=== PATIENT | female | born 1975 | race Caucasian/White ===

== ENCOUNTER 2016-10-06 14:15 | Emergency (ER) | payer MEDICAID ==
[~2016-10-06] VITALS: Ht 170.2 cm; Wt 100.0 kg
[~2016-10-06 14:15] MED LIST: BUPR150CR PO; EFFE150C PO; IBUP200C PO; MULTTAB48 PO
[2016-10-06 14:17] VITALS: BP 126/85; PULSE 78; RESP 14; TEMP 98.1; O2SAT 97
== END 2016-10-06 16:00 | disposition left against medical advice (07) ==
LOC: NED 14:15
DX: F99 Mental disorder, not otherwise specified (principal)
CPT/HCPCS: 99281

== ENCOUNTER 2016-10-07 14:30 | Inpatient (IN) | payer MEDICAID, OTHER ==
[~2016-10-07] VITALS: Ht 170.2 cm; Wt 97.8 kg
[2016-10-07 17:35] VITALS: BP 135/73; PULSE 66; RESP 16; TEMP 98.6; O2SAT 96
[2016-10-07] MEDS ORDERED: LORazepam 1 MG TAB PO PRN (17:45)
[2016-10-07] MEDS ORDERED: ACETAMINOPHEN 325 MG TAB PO PRN (17:45)
[2016-10-07] MEDS ORDERED: MAGNESIUM HYDROXIDE SUSP 30 ML CUP PO PRN (17:45)
[2016-10-07] MEDS ORDERED: ALUMINUM/MAGNESIUM/SIMETH 30 ML CUP PO PRN (17:45)
[2016-10-07] MEDS ORDERED: LORazepam 2 MG/ML VIAL IM PRN ×5 (17:45→18:30)
[2016-10-07] MEDS ORDERED: hydrOXYzine HCL 50 MG TAB PO PRN (18:30)
[2016-10-07] MEDS ORDERED: FLUMAZENIL 1 MG/10 ML VIAL IV PUSH PRN (18:30)
[2016-10-07] MEDS ORDERED: LORazepam 2 MG TAB PO PRN (18:30)
[2016-10-08 06:00] VITALS: BP 120/67; PULSE 72; RESP 16; TEMP 98.2; O2SAT 98
[2016-10-08 08:26] LABS: ANION GAP 7 MEQ/L (5-15); BICARBONATE 29.5 MEQ/L (21.0-32.0); BLOOD UREA NITROGEN 10 MG/DL (7-18); CHLORIDE 104 MEQ/L (98-107); GLOMERULAR FILTRATION RATE 79 ML/MIN (>89); HDL CHOLESTEROL 44.3 MG/DL (40.0-60.0); LDL CHOLESTEROL 91 MG/DL (0-99); POTASSIUM 4.5 MEQ/L (3.5-5.1); SODIUM (NA) 140 MEQ/L (136-145)
[2016-10-08] MEDS ORDERED: REMOVE OLD NICOTINE PATCH T-DERMAL SCH (09:00)
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
[2016-10-08] MEDS: buPROPion HCL 100 MG SUSTAINED RELEASE TAB PO SCH ×2 (11:09→20:45)
[2016-10-08] MEDS: LORazepam 1 MG TAB PO PRN ×2 (11:09→17:44)
[2016-10-08] MEDS: DIVALPROEX DR 500 MG TABEC PO SCH ×2 (11:09→20:45)
[2016-10-08] MEDS: NICOTINE 21 MG/24 HR PATCH TD SCH (12:19)
[2016-10-08 16:39] LABS: HEMOGLOBIN A1a 1.1 %; HEMOGLOBIN A1b 1.4 %; HEMOGLOBIN Ao 86.5 %; HEMOGLOBIN LA1C 1.7 %; HEMOGLOBIN P3 3.3 %
[2016-10-08] MEDS ORDERED: NICOTINE 21 MG/24 HR PATCH T-DERMAL SCH (18:00)
[2016-10-08 19:29] VITALS: BP 115/78; PULSE 92; RESP 17; TEMP 98.3; O2SAT 99
[2016-10-08 20:00] VITALS: BP 124/81; PULSE 82; RESP 18; TEMP 98.7; O2SAT 97
[2016-10-09 05:58] VITALS: BP 112/59; PULSE 83; RESP 16; TEMP 98.5; O2SAT 96
[2016-10-09] MEDS: REMOVE OLD NICOTINE PATCH T-DERMAL SCH (09:00)
[2016-10-09] MEDS: buPROPion HCL 100 MG SUSTAINED RELEASE TAB PO SCH ×2 (09:00→20:26)
[2016-10-09] MEDS: NICOTINE 21 MG/24 HR PATCH TD SCH (09:06)
[2016-10-09] MEDS: DIVALPROEX DR 500 MG TABEC PO SCH ×2 (09:07→20:25)
--- NOTE | 2016-10-09 13:31 | HHI.PYPN ---
Subjective Remarks Patient was seen and discussed with the executive staff assistant. Patient reported that she has been feeling better but has some vivid dreams at night. She also complained about some nausea but other than that she does seem to have been feeling better. She denied any active suicidal ideation intentions or plan. Denied any active auditory or visual hallucinations. No behavior or management problem reported. No side effects other than that is mentioned. Continue with the same treatment Review of Systems Except as stated in HPI: all other systems reviewed are Neg Psychiatric: COMPLAINS OF: Mood changes, Depression Objective Alert: Yes [place]: Person, Place, Date, Situation Mood: Anxious, Depressed Affect: Euthymic Memory Intact: Comment (clinically fairly intact) Hallucinations: Other (patient denied any auditory or visual hallucinations) Delusions: No Delusion Type: Other (no delusional material elicited) Suicidal: Ideation (denies any suicidal ideation intentions or plan) Homicidal: Ideation (denies) Insight/Judgement Fair Remarks Attention and concentration improving. Gait normal. Language normal. Fund of knowledge average Vitals/IOs Vital Signs Date Time Temp Pulse Resp B/P Pulse Ox O2 Delivery O2 Flow Rate FiO2 10/09/16 05:58 98.5 83 16 112/59 96 Assessment & Plan Problem List: (1) Alcohol abuse with alcohol-induced mood disorder ICD Code: F10.14 (2) rule out bipolar affective disorder depressed Assessment & Plan Estimated LOS: days Justification for Cont. Inpt. Titrating and monitoring of the medication Request HC Surrog/Guard Advoc?: No Lonnie Aponte MD Oct 09, 2016 13:31
[2016-10-09] MEDS: LORazepam 1 MG TAB PO PRN (17:57)
[2016-10-09 18:45] VITALS: BP 123/74; PULSE 88; RESP 17; TEMP 97.8; O2SAT 96
[2016-10-10 05:49] VITALS: BP 105/62; PULSE 76; RESP 16; TEMP 98.1
[2016-10-10] MEDS: REMOVE OLD NICOTINE PATCH T-DERMAL SCH (09:00)
[2016-10-10] MEDS: NICOTINE 21 MG/24 HR PATCH TD SCH (09:45)
[2016-10-10] MEDS: DIVALPROEX DR 500 MG TABEC PO SCH ×2 (09:45→21:51)
[2016-10-10] MEDS: buPROPion HCL 100 MG SUSTAINED RELEASE TAB PO SCH ×2 (09:45→21:51)
[2016-10-10] MEDS: LORazepam 1 MG TAB PO PRN (11:53)
[2016-10-10 19:33] VITALS: BP 107/68; PULSE 92; RESP 16; TEMP 98.1; O2SAT 98
--- NOTE | 2016-10-10 20:38 | HHI.PYPN ---
Subjective Remarks Pt seen and discussed with staff. Pt is tolerating medications without side effects. Mood lability persists but is improving. Pt had two panic attacks today on unit and refused lunch. No SI/HI. Objective Alert: Yes [place]: Person, Place, Date, Situation Mood: Anxious, Depressed Affect: Labile Memory Intact: Comment (clinically fairly intact) Hallucinations: Other (patient denied any auditory or visual hallucinations) Delusions: No Delusion Type: Other (no delusional material elicited) Suicidal: Ideation (denies any suicidal ideation intentions or plan) Homicidal: Ideation (denies) Insight/Judgement fair Vitals/IOs Vital Signs Date Time Temp Pulse Resp B/P Pulse Ox O2 Delivery O2 Flow Rate FiO2 10/10/16 19:33 98.1 92 16 107/68 98 Assessment & Plan Problem List: (1) Alcohol abuse with alcohol-induced mood disorder ICD Code: F10.14 (2) rule out bipolar affective disorder depressed Assessment & Plan Continue current tx plan. Estimated LOS: days Justification for Cont. Inpt. monitoring for safety and medication titraton Request HC Surrog/Guard Advoc?: No Rosalie Jacques MD Oct 10, 2016 20:38
[2016-10-11 05:38] VITALS: BP 103/60; PULSE 80; RESP 18; TEMP 97.4
[2016-10-11] MEDS: DIVALPROEX DR 500 MG TABEC PO SCH ×2 (08:33→20:48)
[2016-10-11] MEDS: NICOTINE 21 MG/24 HR PATCH TD SCH ×2 (08:33→10:05)
[2016-10-11] MEDS: buPROPion HCL 100 MG SUSTAINED RELEASE TAB PO SCH ×2 (08:33→20:48)
[2016-10-11] MEDS: REMOVE OLD NICOTINE PATCH T-DERMAL SCH (09:00)
--- NOTE | 2016-10-11 17:37 | HHI.PYPN ---
Subjective Remarks Pt seen and discussed with staff. Pt reports that "I'm feeling like a human again." She reports that thought process is clear and she has not had panic attacks today and has been utilizing coping skills. She is tolerating medications without side effects. She denies SI/HI. Objective Alert: Yes [place]: Person, Place, Date, Situation Mood: Calm Affect: Restricted Memory Intact: Comment (intact) Hallucinations: Other (patient denied any auditory or visual hallucinations) Delusions: No Delusion Type: Other (no delusional material elicited) Suicidal: Ideation (denies any suicidal ideation intentions or plan) Homicidal: Ideation (denies) Insight/Judgement poor Vitals/IOs Vital Signs Date Time Temp Pulse Resp B/P Pulse Ox O2 Delivery O2 Flow Rate FiO2 10/11/16 05:38 97.4 80 18 103/60 10/10/16 19:33 98 Assessment & Plan Problem List: (1) Alcohol abuse with alcohol-induced mood disorder ICD Code: F10.14 (2) rule out bipolar affective disorder depressed Assessment & Plan Continue current tx plan. Estimated LOS: days Justification for Cont. Inpt. risk of decompensating Request HC Surrog/Guard Advoc?: Rosalie Pollard MD Oct 11, 2016 17:37
[2016-10-11 19:30] VITALS: BP 130/78; PULSE 96; RESP 18; TEMP 97.2; O2SAT 99
[2016-10-12 05:00] VITALS: BP 104/71; PULSE 68; RESP 16; TEMP 98.1
[2016-10-12] MEDS: DIVALPROEX DR 500 MG TABEC PO SCH (08:30)
[2016-10-12] MEDS: NICOTINE 21 MG/24 HR PATCH TD SCH (08:30)
[2016-10-12] MEDS: REMOVE OLD NICOTINE PATCH T-DERMAL SCH (08:30)
[2016-10-12] MEDS: buPROPion HCL 100 MG SUSTAINED RELEASE TAB PO SCH (08:30)
--- NOTE | 2016-10-12 10:37 | HHI.DS ---
Psychiatry Discharge Summary Inpatient Psychiatric care?: Yes Advance Directive: No Reason Not Provided: Due to Patient Condition Mental Health AdvanceDirective: No Health Care Proxy: No Admission Admission Date Oct 07, 2016 at 14:30 Admission Diagnosis: (1) Alcohol abuse with alcohol-induced mood disorder ICD Code: F10.14 (2) rule out bipolar affective disorder depressed GAF Score: 45 Brief History This is a 41-year-old white female who was transferred from the [facility] to [facility] where she went because she was not feeling good. Patient claimed that over the New Year's luis she lost control over her drinking and she does not even remember she also started to abuse cocaine she was depressed crying and at that point she thought of ending her life. And came to the hospital because she was not feeling good and told them that her medication is not working. She has been taking Effexor and Wellbutrin. And on top of that she also was drinking and doing occasionally some drugs. And she wanted some help. 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 And needs some help. At that point she was Foster acted and was sent here for help. Patient is willing to sign voluntary. She feels safe in the hospital and promises that she is not going to do anything to harm herself. She was feeling somewhat sad depressed frustrated and occasionally irritable. She claimed that she lives with her son was 17 years old also was concerned about her drinking too much and wanting her to cut that down. Patient claimed that she has been sick and on medication for the last 7 years but in the last 1 year or so she has been getting worse in terms of alcohol abuse. In the past she has been to the rehabilitation 2 or 3 times. She denied any legal difficulty or problem Tobacco Use In Past 30 Days: 5 or More Cigarettes/Day Alcohol Use: 4 or More Times Per Week Hospital Course Patient was started on supportive treatment. She persevered in all the therapeutic activity on the floor. Her medication was adjusted and she was started on Depakote. No side effects were complained. Patient started to feel better. Was willing to abstain from any alcohol and drug use and/or abuse and follow-up as an outpatient and take the medication to stabilize her mood. Patient denied any suicidal ideation intentions or plan wanting to go home at that point arrangements were made for her to be discharged Results Blood Pressure 104 / 71 Vital Signs Date Time Temp Pulse Resp B/P Pulse Ox O2 Delivery O2 Flow Rate FiO2 10/12/16 05:00 98.1 68 16 104/71 10/11/16 19:30 99 Laboratory Results Test 10/08/16 06:49 Hemoglobin A1c 5.4 % (4.3-6.0) Triglycerides Level 165 MG/DL (42-150) Cholesterol Level 168 MG/DL (120-200) LDL Cholesterol 91 MG/DL (0-99) HDL Cholesterol 44.3 MG/DL (40.0-60.0) Summary of Major Lab Results Nothing significant Summary of Procedures None Imaging None Pending results at discharge: No Medications # of Antipsychotic meds at D/C: 0 Approp Antipsych med options 1 - Minimum of three failed multiple trials of monotherapy. 2 - Documented plan to taper to monotherapy due to previous use of multiple meds OR cross-taper in progress at D/C. 3 - Documentation of augmentation of Clozapine. 4 - Justification other than those listed in allowable values 1-3, document here : Discharge Discharge Date: Oct 12, 2016 Discharge Diagnosis: (1) Alcohol abuse with alcohol-induced mood disorder Diagnosis: Principal ICD Code: F10.14 (2) rule out bipolar affective disorder depressed Diagnosis: Principal Mental Status Exam at Disch Patient was alert oriented 3 cooperative casually dressed her speech was clear spontaneous without any evidence of loose associations or flights of ideas or pressure speech her mood was described as feeling much better was willing to abstain from any alcohol use and/or abuse and follow-up as an outpatient Pt Condition on Discharge: Stable Discharge Disposition: Discharge Home Discharge Instructions Diet Instructions: As Tolerated, No Restrictions Activities you can perform: Regular-No Restrictions Scheduled Appointment: Raymond Vallejo Discharge Time <= 30 minutes Discharge/Advance Care Plan Health Problems: (1) Alcohol abuse with alcohol-induced mood disorder (2) rule out bipolar affective disorder depressed Goals to promote your health * To prevent worsening of your condition and complications * To maintain your health at the optimal level Directions to meet your goals Take your medications as prescribed Follow your dietary instruction Follow activity as directed Keep your appointments as scheduled Take your immunizations and boosters as scheduled If your symptoms worsen call your PCP, if no PCP go to Urgent Care Center or Emergency Room For 26/04 questions related to your inpatient stay or results of tests pending at discharge, please contact Dr. Lonnie Aponte at Smoking is Dangerous to Your Health. Avoid second hand smoking Lonnie Aponte MD Oct 12, 2016 10:37
[2016-10-12] MEDS ORDERED: DIVA500T PO (10:38)
[2016-10-12] MEDS ORDERED: BUPR100CR PO (10:38)
== END 2016-10-12 12:45 | disposition home or self-care (01) | DRG 897 ==
LOC: H260 14:30
PROVIDERS: ADMIT Psychiatry & Neurology Psychiatry; ATTEND Psychiatry & Neurology Psychiatry
DX: F10.14 Alcohol abuse with alcohol-induced mood disorder (principal); F14.10 Cocaine abuse, uncomplicated; Z72.0 Tobacco use
CPT/HCPCS: 80048; 80061; 83036

== ENCOUNTER 2016-11-03 08:17 | Emergency (ER) | payer MEDICAID, OTHER ==
[~2016-11-03] VITALS: Ht 170.2 cm; Wt 98.0 kg
[~2016-11-03 08:17] MED LIST changes: +BUPR100CR PO; +DIVA500T PO
[2016-11-03 08:21] VITALS: BP 121/73; PULSE 74; RESP 16; TEMP 98.7; O2SAT 100
[2016-11-03] MEDS ORDERED: CEPH-460 PO (08:43)
--- NOTE | 2016-11-03 08:43 | PD ---
HPI Chief Complaint: lesion on shoulder Time Seen by Provider: 08:33 Travel History International Travel<30 days: No Contact w/Intl Traveler<30days: No Traveled to known affect area: No History of Present Illness HPI 41-year-old female states she's had a lesion to her left shoulder area for multiple years that has recently over the past couple days become tender. She states that she hasn't had any fever or other concurrent complaints. She states she has been doing more lifting and working out but denies specific trauma. Quality pain is sharp. Severity is moderate. Pain is worse with movement. She denies other modifying factors. PFSH Past Medical History Hx Anticoagulant Therapy: No Anemia: Yes Autoimmune Disease: No Blood Disorders: No Anxiety: Yes Depression: Yes Cancer: No Cardiovascular Problems: No High Cholesterol: Yes Diabetes: No Diminished Hearing: No Endocrine: No Gastrointestinal Disorders: No Genitourinary: No Headaches: No Hepatitis: No Hiatal Hernia: No Hypertension: No Immune Disorder: No Implanted Vascular Access Dvce: No Kidney Stones: Yes Musculoskeletal: No Neurologic: No Reproductive: No Respiratory: No Seizures: No Thyroid Disease: No ?: Not : 5 Para: 1 Miscarriage: 2 : 2 Ovarian Cysts: Yes (LEFT) Past Surgical History Appendectomy: Yes (2010) Cholecystectomy: Yes Hysterectomy: Yes Social History Alcohol Use: No (QUIT 2004) Tobacco Use: No (QUIT 2009) Substance Use: Yes (CRACK, POT ,AMPHET, BENZOS per records) Allergies-Medications (Allergen,Severity, Reaction): Coded Allergies: Naproxen (Unverified Allergy, Severe, Hives, 11/03/16) Reported Meds & Prescriptions Reported Meds & Active Scripts Active Keflex (Cephalexin) 500 Mg Cap 500 Mg PO Q6H [address] (Divalproex Sodium) 500 Mg Tabdr 500 Mg PO BID 10 Days Reported Multi Main Minerals (Multiple Minerals W/ Vitamins) 1 Tab Tab 1 Tab PO DAILY Wellbutrin SR 12 HR (Bupropion HCl) 150 Mg Tab 150 Mg PO DAILY Ibuprofen 200 Mg Cap 800 Mg PO Q6HR PRN Review of Systems Except as stated in HPI: all other systems reviewed are Neg Physical Exam Narrative GENERAL: Well-nourished, well-developed patient. SKIN: To left supraclavicular area there is a mobile circular cyst area noted that is tender to palpation without associated induration with mild overlying erythema without warmth or crepitus HEAD: Normocephalic and atraumatic. EYES: No injection or drainage. ENT: No nasal drainage noted. NECK: Supple, trachea midline. CARDIOVASCULAR: Regular rate and rhythm RESPIRATORY: No increased effort. No accessory muscle use. GASTROINTESTINAL: Abdomen soft, non-tender, nondistended. EXTREMITIES: No edema. No specific joint pain, nvi NEUROLOGICAL: Awake and alert. Motor and sensory grossly within normal limits. Normal speech. Data Data Last Documented VS Vital Signs Date Time Temp Pulse Resp B/P Pulse Ox O2 Delivery O2 Flow Rate FiO2 11/03/16 08:21 98.7 74 16 121/73 100 MDM Medical Decision Making Medical Screen Exam Complete: Yes Emergency Medical Condition: Yes Medical Record Reviewed: Yes (past history confirmed) Differential Diagnosis Cellulitis, cyst, abscess Narrative Course Area is likely mobile cyst that has just started to become infected but is small and less than a half centimeter in size, no current indication for drainage patient agrees to warm compresses and states has had Keflex in the past without issue. Given return instructions and agrees to plan of care Diagnosis Primary Impression: Epidermoid cyst of skin of chest Patient Instructions: General Instructions Additional Instructions: return as needed, motrin with food as needed, follow with primary in 2 days for recheck Med/Other Pt SpecificInfo: Prescription(s) given Scripts Cephalexin (Keflex)500 Mg [id number] Mg PO Q6H 7 Days Prov:Stella Mcwilliams MD 11/03/16 Disposition: 01 DISCHARGE HOME Condition: Stable Stella Mcwilliams MD Nov 03, 2016 08:43
== END 2016-11-03 08:50 | disposition home or self-care (01) ==
LOC: PHED 08:17
DX: L72.0 Epidermal cyst (principal); E78.00 Pure hypercholesterolemia, unspecified; Z86.2 Personal history of diseases of the blood and blood-forming organs and certain disorders involving the immune mechanism; Z86.59 Personal history of other mental and behavioral disorders; Z87.891 Personal history of nicotine dependence
CPT/HCPCS: 99282

== ENCOUNTER 2017-02-16 21:00 | Emergency (ER) | payer SELFPAY ==
[~2017-02-16] VITALS: Ht 170.2 cm; Wt 96.0 kg
[~2017-02-16 21:00] MED LIST changes: -BUPR100CR PO; +CEPH-460 PO; -EFFE150C PO
[2017-02-16 21:10] VITALS: BP 116/84; PULSE 86; RESP 20; TEMP 98.6; O2SAT 99
[2017-02-16] MEDS ORDERED: SODIUM CHLOR 0.9% 1000 ML INJ 1,000 ML IV ONE (21:30)
--- NOTE | 2017-02-16 21:32 | PD ---
HPI Chief Complaint: Abdominal Pain Time Seen by Provider: 21:21 Travel History International Travel<30 days: No Contact w/Intl Traveler<30days: No Traveled to known affect area: No History of Present Illness HPI This 41-year-old female complaining of feeling dizzy and lightheaded. She is having some intermittent vaginal bleeding. She has had a partial hysterectomy but says she continues to bleed with her.. She was told this would happen IV dike supervisor that performed the surgery. She had the surgery done because she had large fibroids which were blocking the menstrual flow. She has been having this pain off and on with her period Since surgery She does have a history of anxiety and is on Wellbutrin and Depakote and Klonopin. She had an ultrasound a year ago which was normal PFSH Past Medical History Hx Anticoagulant Therapy: No Anemia: Yes Autoimmune Disease: No Blood Disorders: No Anxiety: Yes Depression: Yes Cancer: No Cardiovascular Problems: No High Cholesterol: Yes Diabetes: No Diminished Hearing: No Endocrine: No Gastrointestinal Disorders: No Genitourinary: No Headaches: No Hepatitis: No Hiatal Hernia: No Hypertension: No Immune Disorder: No Implanted Vascular Access Dvce: No Kidney Stones: Yes Musculoskeletal: No Neurologic: No Reproductive: No Respiratory: No Seizures: No Thyroid Disease: No : 5 Para: 1 Miscarriage: 2 : 2 Ovarian Cysts: Yes (LEFT) Past Surgical History Appendectomy: Yes (2010) Cholecystectomy: Yes Hysterectomy: Yes Social History Alcohol Use: No (QUIT 2004) Tobacco Use: No (QUIT 2009) Substance Use: Yes (CRACK, POT ,AMPHET, BENZOS per records) Allergies-Medications (Allergen,Severity, Reaction): Coded Allergies: Naproxen (Unverified Allergy, Severe, Hives, 02/16/17) Reported Meds & Prescriptions Reported Meds & Active Scripts Active Reported Depakote ER (Divalproex Sodium) 500 Mg Joel 1,000 Mg PO DAILY Klonopin (Clonazepam) 0.5 Mg Tab 0.5 Mg PO BID Wellbutrin SR 12 HR (Bupropion HCl) 150 Mg Tab 100 Mg PO DAILY Ibuprofen 200 Mg Cap 800 Mg PO Q6HR PRN Review of Systems General / Constitutional: No: Fever Eyes: No: Diploplia, Blurred Vision HENT: No: Headaches, Vertigo Cardiovascular: No: Chest Pain or Discomfort, Palpitations Physical Exam Narrative GENERAL: Well-developed female SKIN: Focused skin assessment warm/dry. HEAD: Atraumatic. Normocephalic. EYES: Pupils equal and round. No scleral icterus. No injection or drainage. ENT: No nasal bleeding or discharge. Mucous membranes pink and moist. NECK: Trachea midline. No JVD. CARDIOVASCULAR: Regular rate and rhythm. No murmur appreciated. RESPIRATORY: No accessory muscle use. Clear to auscultation. Breath sounds equal bilaterally. GASTROINTESTINAL: Abdomen soft, non-tender, nondistended. Hepatic and splenic margins not palpable. DIVISION SERVICE MANAGER: There is no discharge. No pain with movement of cervix. There are no masses MUSCULOSKELETAL: No obvious deformities. No clubbing. No cyanosis. No edema. NEUROLOGICAL: Awake and alert. No obvious cranial nerve deficits. Motor grossly within normal limits. Normal speech. PSYCHIATRIC: Appropriate mood and affect; insight and judgment normal. Data Data Last Documented VS Vital Signs Date Time Temp Pulse Resp B/P Pulse Ox O2 Delivery O2 Flow Rate FiO2 02/16/17 22:45 78 18 121/74 98 Room Air 02/16/17 21:10 98.6 Orders Complete Blood Count With Diff (02/16/17 21:30) Basic Metabolic Panel (Bmp) (02/16/17 21:30) Urinalysis - C+S If Indicated (02/16/17 21:30) Orthostatic Vital Signs (02/16/17 21:30) Sodium Chlor 0.9% 1000 Ml Inj (Ns 1000 M (02/16/17 21:30) Ondansetron Inj (Zofran Inj) (02/16/17 22:00) Morphine Inj (Morphine Inj) (02/16/17 22:00) Hydromorphone Pf Inj (Dilaudid Pf Inj) (02/17/17 00:00) Labs Laboratory Tests Test 02/16/17 21:59 White Blood Count 8.1 TH/MM3 Red Blood Count 4.27 MIL/MM3 Hemoglobin 12.8 GM/DL Hematocrit 38.0 % Mean Corpuscular Volume 88.8 FL Mean Corpuscular Hemoglobin 30.0 PG Mean Corpuscular Hemoglobin 33.7 % Concent Red Cell Distribution Width 13.4 % Platelet Count 289 TH/MM3 Mean Platelet Volume 7.8 FL Neutrophils (%) (Auto) 52.6 % Lymphocytes (%) (Auto) 33.0 % Monocytes (%) (Auto) 7.7 % Eosinophils (%) (Auto) 5.4 % Basophils (%) (Auto) 1.3 % Neutrophils # (Auto) 4.3 TH/MM3 Lymphocytes # (Auto) 2.7 TH/MM3 Monocytes # (Auto) 0.6 TH/MM3 Eosinophils # (Auto) 0.4 TH/MM3 Basophils # (Auto) 0.1 TH/MM3 CBC Comment DIFF FINAL Differential Comment Urine Color YELLOW Urine Turbidity CLERA Urine pH 7.0 Urine Specific [place] 1.018 Urine Protein NEG mg/dL Urine Glucose (UA) NEG mg/dL Urine Ketones NEG mg/dL Urine Occult Blood SMALL Urine Nitrite NEG Urine Bilirubin NEG Urine Leukocyte Esterase SMALL Urine WBC 0-2 /hpf Urine Squamous Epithelial 0-5 /hpf Cells Urine Amorphous Sediment FEW Microscopic Urinalysis Comment CULT NOT INDICATED Sodium Level 141 MEQ/L Potassium Level 4.1 MEQ/L Chloride Level 107 MEQ/L Carbon Dioxide Level 27.4 MEQ/L Anion Gap 7 MEQ/L Blood Urea Nitrogen 19 MG/DL Creatinine 0.96 MG/DL Estimat Glomerular Filtration 64 ML/MIN Rate Random Glucose 103 MG/DL Calcium Level 8.3 MG/DL [facility] Medical Decision Making Medical Screen Exam Complete: Yes Emergency Medical Condition: Yes Medical Record Reviewed: Yes Differential Diagnosis Differential includes ovarian cyst, postoperative pain, adhesions Narrative Course Lab work is unremarkable. Patient will be treated with Motrin and Zofran. She is stable for discharge Diagnosis Primary Impression: Abdominal pain Qualified Code: R10.32 - Left lower quadrant pain Additional Impression: Vertigo Departure Forms: Tests/Procedures, Work Release Enter return to work date: February 19, 2017 Scripts Ondansetron Odt (Zofran Odt)4 Mg Tab4 Mg SL Q6HR PRN (Nausea/Vomiting) #20 TAB Ref 0 Prov:Harvey Parker MD 02/17/17 Ibuprofen 600 Mg Oby546 Mg PO Q6H PRN (Pain/Inflammation) #30 TAB Ref 0 Prov:Harvey Parker MD 02/17/17 Hydrocodone-Acetaminophen (Lortab)10-325 Mg Tab1 Tab PO Q4H PRN (PAIN) #30 TAB Ref 0 Prov:Harvey Parker MD 02/17/17 Disposition: 01 DISCHARGE HOME Condition: Stable Harvey Parker MD February 16, 2017 21:32
[2017-02-16] MEDS ORDERED: DEPA500T3 PO (21:38)
[2017-02-16] MEDS ORDERED: CLON.5 PO (21:38)
[2017-02-16] MEDS ORDERED: ONDANSETRON HCL 4 MG/2 ML VIAL IV PUSH ONE (22:00)
[2017-02-16] MEDS ORDERED: MORPHINE SULFATE 8 MG/ML INJ IV PUSH ONE (22:00)
[2017-02-16 22:12] LABS: AUTOMATED NEUTROPHIL # 4.3 TH/MM3 (1.8-7.7); BASOPHIL # 0.1 TH/MM3 (0-0.2); BASOPHIL % 1.3 % (0.0-2.0); EOSINOPHIL # 0.4 TH/MM3 (0-0.4); EOSINOPHIL % 5.4 % (0.0-4.0); HEMO FLAGS DIFF FINAL; LYMPHOCYTE # 2.7 TH/MM3 (1.0-4.8); MEAN CELL VOLUME 88.8 FL (80.0-100.0); MEAN CORPUSCULAR HGB CONC 33.7 % (32.0-36.0); MONO % 7.7 % (0.0-8.0); NEUT % 52.6 % (16.0-70.0); PLATELET COUNT 289 TH/MM3 (150-450); RED BLOOD COUNT 4.27 MIL/MM3 (4.00-5.30); RED CELL DISTRIBUTION WIDTH 13.4 % (11.6-17.2); WHITE BLOOD COUNT 8.1 TH/MM3 (4.0-11.0)
[2017-02-16 22:13] LABS: BLOOD, URINE SMALL (NEG); GLUCOSE,URINE NEG (NEG); KETONE, URINE NEG (NEG); NITRITE,URINE NEG (NEG)
[2017-02-16 22:22] LABS: POTASSIUM 4.1 MEQ/L (3.5-5.1)
[2017-02-16 22:23] LABS: URINE COLOR YELLOW (YELLW/STRAW)
[2017-02-16 22:25] VITALS: BP_SYST 100; BP_SYST 122; BP_DIAS 79; RESP 18
[2017-02-16 22:25] LABS: BICARBONATE 27.4 MEQ/L (21.0-32.0); COMMENT (UR) CULT NOT INDICATED; CULTURE IF INDICATED CULT NOT INDICATED; SQUAMOUS EPITHELIAL CELL URINE 0-5 /hpf (0-5); WBC, URINE 0-2 /hpf (0-5)
[2017-02-16 22:45] VITALS: BP 121/74; PULSE 78; RESP 18; O2SAT 98
[2017-02-17] MEDS ORDERED: HYDROmorphone HCL PF 1 MG/ML VIAL IV PUSH ONE
[2017-02-17 00:05] VITALS: BP 116/81; PULSE 72; RESP 18; O2SAT 98
[2017-02-17] MEDS ORDERED: ZOFR4TAB3 SL (00:10)
[2017-02-17] MEDS ORDERED: IBUP-232 PO (00:10)
[2017-02-17] MEDS ORDERED: HYDR-3535 PO (00:10)
[2017-02-17 00:30] VITALS: RESP 17
== END 2017-02-17 00:41 | disposition home or self-care (01) ==
LOC: PHED 21:00
DX: R10.32 Left lower quadrant pain (principal); R42 Dizziness and giddiness; N93.9 Abnormal uterine and vaginal bleeding, unspecified; F41.9 Anxiety disorder, unspecified; D64.9 Anemia, unspecified; F32.9 Major depressive disorder, single episode, unspecified; E78.00 Pure hypercholesterolemia, unspecified; Z87.891 Personal history of nicotine dependence
CPT/HCPCS: 80048; 81001; 85025; 96361; 96374; 96375; 99284; J1170; J2270; J2405; J7030

== ENCOUNTER 2017-04-25 18:11 | Emergency (ER) | payer OTHER ==
[~2017-04-25] VITALS: Ht 167.6 cm; Wt 94.0 kg
[~2017-04-25 18:11] MED LIST changes: -CEPH-460 PO; +CLON.5 PO; +DEPA500T3 PO; -DIVA500T PO; +HYDR-3535 PO; +IBUP-232 PO; -MULTTAB48 PO; +ZOFR4TAB3 SL
[2017-04-25 18:15] VITALS: BP 126/66; PULSE 88; RESP 14; TEMP 98.5; O2SAT 97
[2017-04-25] MEDS ORDERED: DEPA500T3 PO (18:32)
[2017-04-25 18:33] VITALS: BP 126/66; PULSE 88; RESP 16; TEMP 98.5; O2SAT 97
--- NOTE | 2017-04-25 19:33 | PD ---
HPI Chief Complaint: Skin Problem Time Seen by Provider: 19:25 Travel History International Travel<30 days: No Contact w/Intl Traveler<30days: No Traveled to known affect area: No History of Present Illness HPI 42-year-old female presents to the emergency room for evaluation of a growth on her head for the past week. Patient states she first noticed it one week ago and thinks it has grown in size. She reports some discomfort at the area of growth but denies any significant pain. She reports associated headache in the sinus region, behind the right ear, and in the occipital region. States she has been taking Tylenol and Motrin without any relief in symptoms. Headaches are intermittent, gradual onset. Denies chronic medical conditions other than psychiatric issues. PFSH Past Medical History Hx Anticoagulant Therapy: No Anemia: Yes Autoimmune Disease: No Blood Disorders: No Anxiety: Yes Depression: Yes Cancer: No Cardiovascular Problems: No High Cholesterol: Yes Diabetes: No Diminished Hearing: No Endocrine: No Gastrointestinal Disorders: No Genitourinary: No Headaches: No Hepatitis: No Hiatal Hernia: No Hypertension: No Immune Disorder: No Implanted Vascular Access Dvce: No Kidney Stones: Yes Medical other: Yes (ANEMIA) Musculoskeletal: No Neurologic: No Reproductive: No Respiratory: No Seizures: No Thyroid Disease: No ?: Not : 5 Para: 1 Miscarriage: 2 : 2 Ovarian Cysts: Yes (LEFT) Past Surgical History Appendectomy: Yes (2010) Cholecystectomy: Yes Hysterectomy: Yes Other Surgery: Yes Social History Alcohol Use: No (QUIT 2004) Tobacco Use: No (QUIT 2009) Substance Use: Yes (CRACK, POT ,AMPHET, BENZOS per records) Allergies-Medications (Allergen,Severity, Reaction): Coded Allergies: Naproxen (Unverified Allergy, Severe, Hives, 04/25/17) Reported Meds & Prescriptions Reported Meds & Active Scripts Active Reported Depakote ER (Divalproex Sodium) 500 Mg Joel 500 Mg PO DAILY Depakote ER (Divalproex Sodium) 500 Mg Joel 1,000 Mg PO DAILY Klonopin (Clonazepam) 0.5 Mg Tab 0.25 Mg PO DAILY Wellbutrin SR 12 HR (Bupropion HCl) 150 Mg Tab 100 Mg PO DAILY Review of Systems Except as stated in HPI: all other systems reviewed are Neg Physical Exam Narrative GENERAL: Well-nourished, well-developed female in no acute distress. Afebrile. Ambulatory. SKIN: Focused skin assessment warm/dry. No erythema, ecchymosis, edema, fluctuance, induration, drainage, pointing on the scalp. There is a slight increased area of soft tissue on the right, mid parietal scalp. Nontender to palpation. HEAD: Normocephalic. EYES: No scleral icterus. No injection or drainage. NECK: Supple, trachea midline. No JVD or lymphadenopathy. CARDIOVASCULAR: Regular rate and rhythm without murmurs, gallops, or rubs. RESPIRATORY: Breath sounds equal bilaterally. No accessory muscle use. NEUROLOGICAL: Awake and alert. Cranial nerves II through XII intact. Motor and sensory grossly within normal limits. Five out of 5 muscle strength in all muscle groups. Normal speech. Data Data Last Documented VS Vital Signs Date Time Temp Pulse Resp B/P Pulse Ox O2 Delivery O2 Flow Rate FiO2 04/25/17 18:33 98.5 88 16 126/66 97 04/25/17 18:[address] Brain W/O Iv Contrast(Rout) (04/25/17 ) MDM Medical Decision Making Medical Screen Exam Complete: Yes Emergency Medical Condition: Yes Medical Record Reviewed: Yes Differential Diagnosis Lipoma, abscess, dandruff Narrative Course 42-year-old female presents to the emergency room for evaluation of a growth on her scalp with associated headaches for the past week. Patient states the growth seems to be increasing in size. No signs of infection. Headaches are gradual onset, intermittent, localized to certain areas of the head. No focal neurological deficits on exam. There is a small soft tissue mass on the top of the patient's scalp with no evidence of infection. Given patient's new-onset headache, CT was ordered. CT is negative. Patient discharged with instructions to take ibuprofen for pain and follow-up with a naval gunfire liaison officer concerning her scalp. Told to return for worsening symptoms. She understands and agrees to plan. Diagnosis Primary Impression: Lipoma of scalp Referrals: Data Conversion Analyst Primary Care Physician Patient Instructions: General Instructions, Lipoma (ED) Additional Instructions: Rest and drink plenty of fluids. Take ibuprofen with food as directed, as needed for pain. Apply ice to the affected area for 20 minutes at a time, as needed for pain and swelling. Follow-up with a primary care physician and/or naval gunfire liaison officer. Return to the emergency room for worsening symptoms. Disposition: 01 DISCHARGE HOME Condition: Stable Mitali Bennett Apr 25, 2017 19:33
--- NOTE | 2017-04-25 19:57 | RADRPT ---
EXAM DATE/TIME: 04/25/2017 19:34 [facility] COMPARISON: No previous studies available for comparison. INDICATIONS : Cephalgia. Mass on right parietal region of head increasing in size. RADIATION DOSE: 59.11 CTDIvol (mGy) MEDICAL HISTORY : None SURGICAL HISTORY : Hysterectomy. ENCOUNTER: Initial ACUITY: 2 weeks PAIN SCALE: 6/10 LOCATION: Right parietal TECHNIQUE: Multiple contiguous axial images were obtained of the head. Using automated exposure control and adj ustment of the mA and/or kV according to patient size, radiation dose was kept as low as reasonably a chievable to obtain optimal diagnostic quality images. DICOM format image data is available electro nically for review and comparison. FINDINGS: CEREBRUM: The ventricles are normal for age. No evidence of midline shift, mass lesion, hemorrhage or acute in farction. No extra-axial fluid collections are seen. POSTERIOR FOSSA: The cerebellum and brainstem are intact. The 4th ventricle is midline. The cerebellopontine angle i s unremarkable. EXTRACRANIAL: The visualized portion of the orbits is intact. SKULL: The calvaria is intact. No evidence of skull fracture. CONCLUSION: No acute intracranial disease. Keshav Suero MD on April 25, 2017 at 19:54 Board Certified Radiologist. This report was verified electronically.
== END 2017-04-25 20:19 | disposition home or self-care (01) ==
LOC: PHEFT 18:11
DX: D17.0 Benign lipomatous neoplasm of skin and subcutaneous tissue of head, face and neck (principal); R51 Headache; E78.00 Pure hypercholesterolemia, unspecified; Z86.59 Personal history of other mental and behavioral disorders; Z86.2 Personal history of diseases of the blood and blood-forming organs and certain disorders involving the immune mechanism; Z87.442 Personal history of urinary calculi
CPT/HCPCS: 70450

== ENCOUNTER 2017-12-09 09:17 | Emergency (ER) | payer OTHER ==
[~2017-12-09 09:17] MED LIST changes: -HYDR-3535 PO; -IBUP-232 PO; -IBUP200C PO; -ZOFR4TAB3 SL
[2017-12-09 09:22] VITALS: BP 147/84; PULSE 84; RESP 16; TEMP 98.2; O2SAT 100
--- NOTE | 2017-12-09 09:30 | PD ---
HPI Chief Complaint: GI Complaint Time Seen by Provider: 09:25 Travel History International Travel<30 days: No Contact w/Intl Traveler<30days: No Traveled to known affect area: No History of Present Illness HPI 42-year-old female presents emergency department with 3 week history of lower abdominal pain, which is getting progressively worse in the left lower quadrant. Patient reports that she has had a partial hysterectomy with leaving of the cervix, and recently seen by her risk assessor having a cauterization done of the cervix which was said to be bleeding. Patient has had her gallbladder and appendix removed previously. Patient states she has felt somewhat feverish. She states she has had intermittent diarrhea. She states she has had this since he had her gallbladder out. She denies history of diverticulitis or colitis in the past. She does have history of ovarian cysts, and still has her ovaries. She denies urinary dysuria. She states her pain is in the left lower quadrant with radiation in the left flank today. Pain is 8 out of 10. Patient is allergic to Naprosyn. She states she has been taking ibuprofen and BC powder with relief in the beginning but not currently. She states she tried calling her gynecology and primary care office today but was unable to get in. She states also she felt somewhat dizzy today. PFSH Past Medical History Hx Anticoagulant Therapy: No Anemia: Yes Autoimmune Disease: No Blood Disorders: No Anxiety: Yes Depression: Yes Cancer: No Cardiovascular Problems: No High Cholesterol: Yes Diabetes: No Diminished Hearing: No Endocrine: No Gastrointestinal Disorders: No Genitourinary: No Headaches: No Hepatitis: No Hiatal Hernia: No Hypertension: No Immune Disorder: No Implanted Vascular Access Dvce: No Kidney Stones: Yes Musculoskeletal: No Neurologic: No Reproductive: No Respiratory: No Seizures: No Thyroid Disease: No : 5 Para: 1 Miscarriage: 2 : 2 Ovarian Cysts: Yes (LEFT) Past Surgical History Appendectomy: Yes (2010) Cholecystectomy: Yes Hysterectomy: Yes Other Surgery: Yes Social History Alcohol Use: No (QUIT 2004) Tobacco Use: No (QUIT 2009) Substance Use: Yes (CRACK, POT ,AMPHET, BENZOS per records) Allergies-Medications (Allergen,Severity, Reaction): Coded Allergies: naproxen (Unverified Allergy, Severe, Hives, 05/18/17) Reported Meds & Prescriptions Reported Meds & Active Scripts Active Reported Depakote ER (Divalproex Sodium) 500 Mg Joel 500 Mg PO DAILY Depakote ER (Divalproex Sodium) 500 Mg Joel 1,000 Mg PO DAILY Klonopin (Clonazepam) 0.5 Mg Tab 0.25 Mg PO DAILY Wellbutrin SR 12 HR (Bupropion HCl) 150 Mg Tab 100 Mg PO DAILY Review of Systems Except as stated in HPI: all other systems reviewed are Neg General / Constitutional: No: Fever Eyes: No: Visual changes HENT: No: Headaches Cardiovascular: No: Chest Pain or Discomfort Respiratory: No: Shortness of Breath Gastrointestinal: No: Abdominal Pain Genitourinary: Positive: Frequency, Flank Pain, Vaginal Bleeding, No: Urgency, Dysuria Musculoskeletal: No: Pain Skin: No Rash Neurologic: No: Weakness Psychiatric: No: Depression Endocrine: No: Polydipsia Hematologic/Lymphatic: No: Easy Bruising Physical Exam Narrative GENERAL: Patient appears in mild distress per SKIN: Warm and dry. Normal color. Normal turgor. No rash. HEAD: Atraumatic. Normocephalic. EYES: Pupils equal and round. No scleral icterus. No injection or drainage. ENT: No nasal bleeding or discharge. Mucous membranes pink and moist. Pharynx is clear. Airways patent NECK: Trachea midline. Supple nontender. CARDIOVASCULAR: Regular rate and rhythm. RESPIRATORY: No accessory muscle use. Clear to auscultation. Breath sounds equal bilaterally. GASTROINTESTINAL: Abdomen soft, mild to moderate nonspecific left lower quadrant tenderness per, nondistended. Hepatic and splenic margins not palpable. MUSCULOSKELETAL: Extremities without clubbing, cyanosis, or edema. No obvious deformities. NEUROLOGICAL: Awake and alert. No obvious cranial nerve deficits. Motor grossly within normal limits. Five out of 5 muscle strength in the arms and legs. Normal speech. PSYCHIATRIC: Appropriate mood and affect; insight and judgment normal. Data Data Last Documented VS Vital Signs Date Time Temp Pulse Resp B/P (MAP) Pulse Ox O2 Delivery O2 Flow Rate FiO2 12/09/17 09:59 100 Room Air 12/09/17 09:22 98.2 84 16 147/84 (105) Orders Orders Complete Blood Count With Diff (12/09/17 09:47) Comprehensive Metabolic Panel (12/09/17 09:47) Lipase (12/09/17 09:47) Lactic Acid (12/09/17 09:47) Prothrombin Time / Inr (Pt) (12/09/17 09:47) Act Partial Throm Time (Ptt) (12/09/17 09:47) Urinalysis - C+S If Indicated (12/09/17 09:47) Iv Access Insert/Monitor (12/09/17 09:47) Ecg Monitoring (12/09/17 09:47) Oximetry (12/09/17 09:47) Morphine Inj (Morphine Inj) (12/09/17 10:00) Ondansetron Inj (Zofran Inj) (12/09/17 10:00) Sodium Chlor 0.9% 1000 Ml Inj (Ns 1000 M (12/09/17 09:47) Sodium Chloride 0.9% Flush (Ns Flush) (12/09/17 10:00) Ed Urine Pregnancytest Poc (12/09/17 09:47) Type And Screen (12/09/17 09:47) Ketorolac Inj (Toradol Inj) (12/09/17 11:00) Us Pelvis Comp W Dop Transvag (12/09/17 ) Ondansetron Inj (Zofran Inj) (12/09/17 12:45) Morphine Inj (Morphine Inj) (12/09/17 12:45) Labs Laboratory Tests Test 12/09/17 10:20 White Blood Count 8.2 TH/MM3 Red Blood Count 4.31 MIL/MM3 Hemoglobin 13.1 GM/DL Hematocrit 38.3 % Mean Corpuscular Volume 88.9 FL Mean Corpuscular Hemoglobin 30.3 PG Mean Corpuscular Hemoglobin Concent 34.1 % Red Cell Distribution Width 13.8 % Platelet Count 262 TH/MM3 Mean Platelet Volume 7.1 FL Neutrophils (%) (Auto) 54.7 % Lymphocytes (%) (Auto) 32.0 % Monocytes (%) (Auto) 8.2 % Eosinophils (%) (Auto) 4.2 % Basophils (%) (Auto) 0.9 % Neutrophils # (Auto) 4.5 TH/MM3 Lymphocytes # (Auto) 2.6 TH/MM3 Monocytes # (Auto) 0.7 TH/MM3 Eosinophils # (Auto) 0.3 TH/MM3 Basophils # (Auto) 0.1 TH/MM3 CBC Comment DIFF FINAL Differential Comment Prothrombin Time 10.0 SEC Prothromb Time International Ratio 1.0 RATIO Activated Partial Thromboplast Time 24.0 SEC Urine Color YELLOW Urine Turbidity CLEAR Urine pH 6.5 Urine Specific [place] 1.019 Urine Protein NEG mg/dL Urine Glucose (UA) NEG mg/dL Urine Ketones TRACE mg/dL Urine Occult Blood NEG Urine Nitrite NEG Urine Bilirubin NEG Urine Urobilinogen LESS THAN 2.0 MG/DL Urine Leukocyte Esterase SMALL Urine RBC LESS THAN 1 /hpf Urine WBC LESS THAN 1 /hpf Urine Squamous Epithelial Cells 3 /hpf Urine Bacteria RARE /hpf Microscopic Urinalysis Comment CULT NOT INDICATED Blood Urea Nitrogen 14 MG/DL Creatinine 0.80 MG/DL Random Glucose 94 MG/DL Total Protein 6.5 GM/DL Albumin 3.5 GM/DL Calcium Level 8.4 MG/DL Alkaline Phosphatase 59 U/L Aspartate Amino Transf (AST/SGOT) 5 U/L Alanine Aminotransferase (ALT/SGPT) 27 U/L Total Bilirubin 0.3 MG/DL Sodium Level 138 MEQ/L Potassium Level 4.3 MEQ/L Chloride Level 104 MEQ/L Carbon Dioxide Level 26.4 MEQ/L Anion Gap 8 MEQ/L Estimat Glomerular Filtration Rate 79 ML/MIN Lactic Acid Level 1.5 mmol/L Lipase 91 U/L [facility] Medical Decision Making Medical Screen Exam Complete: Yes Emergency Medical Condition: Yes Medical Record Reviewed: Yes Differential Diagnosis Vaginal bleeding. Ovarian cyst. Colitis. Diverticulitis. Narrative Course Patient appears uncomfortable but medically stable at time of exam. Labs ordered including CBC, CMP, lactic acid, coagulation studies, and urinalysis. Type and screen is ordered as well. IV access is obtained and the patient is given 1000 mL normal saline bolus. 2 mg of morphine IV, 4 mg Zofran IV, at 30 mg ketorolac IV. Pelvic ultrasound is ordered. CBC returns unremarkable, with no signs of anemia. Coagulation studies are normal Chemistries are unremarkable as well, with a normal lactic acid. Urinalysis shows trace ketones otherwise no significant findings. Patient complained of increased pain after ultrasound she was given 2 more milligrams IV morphine, and [address] is not felt warranted based on the patient's labs showing no obvious signs of infection. Ultrasound showed: 1. Nonvisualization of the uterus and right ovary. 2. There appear to be 2 small cysts in the left ovary measuring a maximum of 1.4 cm in diameter. 3. Small amount of free fluid in the right adnexal region. Patient's pain is felt to be due to an ovarian cyst. Patient will be treated with high-dose ibuprofen 800 mg 3 times daily #30. Patient is given Zofran 4 mg every 6 hours as needed nausea. #12 Patient to follow with risk assessor. Diagnosis Primary Impression: Ovarian cyst Qualified Codes: N83.209 - Unspecified ovarian cyst, unspecified side Referrals: Roving Changer call for appointment Patient Instructions: Acute Abdominal Pain (ED), General Instructions, Alicia (TEDDY) Additional Instructions: CBC returns unremarkable, with no signs of anemia. Coagulation studies are normal Chemistries are unremarkable as well, with a normal lactic acid. Urinalysis shows trace ketones otherwise no significant findings. Patient complained of increased pain after ultrasound she was given 2 more milligrams IV morphine, and [address] is not felt warranted based on the patient's labs showing no obvious signs of infection. Ultrasound showed: 1. Nonvisualization of the uterus and right ovary. 2. There appear to be 2 small cysts in the left ovary measuring a maximum of 1.4 cm in diameter. 3. Small amount of free fluid in the right adnexal region. Patient's pain is felt to be due to an ovarian cyst. Patient will be treated with high-dose ibuprofen 800 mg 3 times daily #30. Patient is given Zofran 4 mg every 6 hours as needed nausea. #12 Patient to follow with risk assessor. Med/Other Pt SpecificInfo: Prescription(s) given Disposition: DISCHARGE HOME Condition: Stable Thomas Ya Dec 09, 2017 09:30
[2017-12-09] MEDS ORDERED: SODIUM CHLOR 0.9% 1000 ML INJ 1,000 ML IV SCH (09:47)
[2017-12-09 09:59] VITALS: O2SAT 100
[2017-12-09] MEDS ORDERED: ONDANSETRON HCL 4 MG/2 ML VIAL IVP ONE (10:00)
[2017-12-09] MEDS ORDERED: SODIUM CHLORIDE 0.9% FLUSH 10 ML FLUSH IV FLUSH PRN (10:00)
[2017-12-09] MEDS ORDERED: MORPHINE SULFATE 4 MG/ML INJ IV PUSH ONE (10:00)
[2017-12-09] MEDS ORDERED: KETOROLAC TROMETHAMINE 30 MG/ML (IVP) VIAL IV PUSH ONE (11:00)
[2017-12-09 11:02] LABS: AUTOMATED NEUTROPHIL # 4.5 TH/MM3 (1.8-7.7); BASOPHIL # 0.1 TH/MM3 (0-0.2); BASOPHIL % 0.9 % (0.0-2.0); EOSINOPHIL # 0.3 TH/MM3 (0-0.4); EOSINOPHIL % 4.2 % (0.0-4.0); HEMATOCRIT 38.3 % (35.0-46.0); HEMOGLOBIN 13.1 GM/DL (11.6-15.3); LYMPHOCYTE # 2.6 TH/MM3 (1.0-4.8); MEAN CELL VOLUME 88.9 FL (80.0-100.0); MEAN CORPUSCULAR HEMOGLOBIN 30.3 PG (27.0-34.0); MEAN CORPUSCULAR HGB CONC 34.1 % (32.0-36.0); MEAN PLATELET VOLUME 7.1 FL (7.0-11.0); MONO % 8.2 % (0.0-8.0); MONOCYTE # 0.7 TH/MM3 (0-0.9); NEUT % 54.7 % (16.0-70.0); PLATELET COUNT 262 TH/MM3 (150-450); RED BLOOD COUNT 4.31 MIL/MM3 (4.00-5.30); RED CELL DISTRIBUTION WIDTH 13.8 % (11.6-17.2); WHITE BLOOD COUNT 8.2 TH/MM3 (4.0-11.0)
[2017-12-09 11:15] LABS: BACTERIA, URINE RARE /hpf; BILIRUBIN, URINE NEG (NEG); BLOOD, URINE NEG (NEG); GLUCOSE,URINE NEG (NEG); KETONE, URINE TRACE mg/dL (NEG); NITRITE,URINE NEG (NEG); PH, URINE 6.5 (5.0-8.5); SQUAMOUS EPITHELIAL CELL URINE 3 /hpf (0-5); URINE COLOR YELLOW (YELLW/STRAW); URINE LEUKOCYTE ESTERASE SMALL (NEG)
[2017-12-09 11:20] LABS: ALBUMIN 3.5 GM/DL (3.4-5.0); ALT (GPT) 27 U/L (10-53); BICARBONATE 26.4 MEQ/L (21.0-32.0); BLOOD UREA NITROGEN 14 MG/DL (7-18); CALCIUM 8.4 MG/DL (8.5-10.1); CHLORIDE 104 MEQ/L (98-107); GLOMERULAR FILTRATION RATE 79 ML/MIN (>89); GLUCOSE,RANDOM 94 MG/DL (74-106); SODIUM (NA) 138 MEQ/L (136-145)
[2017-12-09 11:24] LABS: ALKALINE PHOSPHATASE 59 U/L (45-117); AST (GOT) 5 U/L (15-37); TOTAL BILIRUBIN ADULT 0.3 MG/DL (0.2-1.0); TOTAL PROTEIN 6.5 GM/DL (6.4-8.2)
[2017-12-09] MEDS ORDERED: MORPHINE SULFATE 2 MG/ML INJ IV PUSH ONE (12:45)
[2017-12-09] MEDS ORDERED: ONDANSETRON HCL 4 MG/2 ML VIAL IV PUSH ONE (12:45)
--- NOTE | 2017-12-09 13:36 | RADRPT ---
EXAM DATE/TIME: 12/09/2017 10:50 [facility] COMPARISON: No previous studies available for comparison. INDICATIONS : Pelvic pain. MEDICAL HISTORY : Hypercholesterolemia. Kidney stones. Anemia. Ovarian cysts. SURGICAL HISTORY : Cholecystectomy. Appendectomy. Partial hysterectomy. ENCOUNTER: Initial ACUITY: 3 weeks PAIN SCORE: 8/10 LOCATION: Bilateral pelvis MEASUREMENTS: TRANSABDOMINAL: LEFT OVARY: 3.8 x 2.0 x 2.5 cm UTERUS: Removed. RIGHT OVARY: Not visualized. cm Doppler Flow?N/A FINDINGS: UTERUS: Not visualized RIGHT OVARY: Not visualized. Small amount of free fluid in the right adnexal region. LEFT OVARY: There appear to be 2 small cysts within the ovarian parenchyma measuring approximately 1.3-1.4 cm in diameter MISCELLANEOUS: Minimal free fluid in the right adnexa. CONCLUSION: 1. Nonvisualization of the uterus and right ovary. 2. There appear to be 2 small cysts in the left ovary measuring a maximum of 1.4 cm in diameter. 3. Small amount of free fluid in the right adnexal region. Cole Villagran MD on December 09, 2017 at 13:33 Board Certified Radiologist. This report was verified electronically.
[2017-12-09] MEDS ORDERED: ZOFR4TAB PO (13:43)
[2017-12-09] MEDS ORDERED: IBUP1TAB7 PO (13:43)
== END 2017-12-09 14:28 | disposition home or self-care (01) ==
LOC: NEPD 09:17
DX: N83.202 Unspecified ovarian cyst, left side (principal); F41.9 Anxiety disorder, unspecified; F32.9 Major depressive disorder, single episode, unspecified; E78.00 Pure hypercholesterolemia, unspecified; F19.10 Other psychoactive substance abuse, uncomplicated; Z87.891 Personal history of nicotine dependence
CPT/HCPCS: 76830; 76856; 80053; 81001; 83605; 83690; 85025; 85610; 85730; 86850; 86900; 86901; 93975; 96361; 96374; 96375; 96376; 99284; J1885; J2270; J2405; J7030

== ENCOUNTER 2018-01-20 08:32 | Emergency (ER) | payer OTHER ==
[~2018-01-20 08:32] MED LIST changes: +IBUP1TAB7 PO; +ZOFR4TAB PO
[2018-01-20 08:34] VITALS: BP 123/78; PULSE 89; RESP 20; TEMP 98.2; O2SAT 100
[2018-01-20] MEDS ORDERED: ACETAMINOPHEN/HYDROcodone 325 MG/5 MG TAB PO ONE (09:00)
--- NOTE | 2018-01-20 09:49 | RADRPT ---
EXAM DATE/TIME: 01/20/2018 09:22 [facility] COMPARISON: No previous studies available for comparison. INDICATIONS : Right ankle pain, tripped over curb. MEDICAL HISTORY : None. SURGICAL HISTORY : None. ENCOUNTER: Initial ACUITY: 1 day PAIN SCORE: 8/10 LOCATION: Right lateral ankle FINDINGS: Three view exam was performed of the right ankle. The bony structures are in normal alignment. No e vidence of fracture, dislocation, or soft tissue swelling. The ankle mortise is intact. No radiopaq ue foreign bodies are seen. Bony mineralization is normal. CONCLUSION: 1. No acute fracture or dislocation. Colby Carter MD on January 20, 2018 at 9:46 Board Certified Radiologist. This report was verified electronically.
--- NOTE | 2018-01-20 09:51 | RADRPT ---
EXAM DATE/TIME: 01/20/2018 09:24 [place] COMPARISON: No previous studies available for comparison. INDICATIONS : Right foot pain, fall over curb. MEDICAL HISTORY : None. SURGICAL HISTORY : None. ENCOUNTER: Initial ACUITY: 1 day PAIN SCORE: 8/10 LOCATION: Right lateral foot FINDINGS: Minimally comminuted nondisplaced fracture of the base of the fifth metatarsal. Remaining osseous str uctures appear intact. Joint spaces are maintained. The tarsal bones are intact. Soft tissue prominen ce overlying the lateral mid foot. CONCLUSION: 1. Minimally comminuted nondisplaced fracture of the base of the fifth metatarsal. Colby Carter MD on January 20, 2018 at 9:47 Board Certified Radiologist. This report was verified electronically.
[2018-01-20] MEDS ORDERED: ONDANSETRON ODT 4 MG TAB PO ONE (10:00)
--- NOTE | 2018-01-20 10:13 | PD ---
HPI Chief Complaint: Injury Time Seen by Provider: 08:49 Travel History International Travel<30 days: No Contact w/Intl Traveler<30days: No Traveled to known affect area: No History of Present Illness HPI 42-year-old female presents to the emergency department with complaint of right foot pain, right ankle pain, and left knee pain after slipping on a curb and twisting her ankle and landing on her left knee today. Denies hitting her head or loss of consciousness. Denies neck pain or back pain. Has been ambulatory since after the slip and fall. Reports an abrasion to her left knee. Denies paresthesias, loss of sensation, decreased range of motion, decreased strength to bilateral lower extremities. Rates pain 8. Has iced her foot for symptom management. Has not taken any medications to alleviate her symptoms. Pain is constant. aggravated with palpation and movement. No known relieving factors. Primary care provider is Dr. live. Allergies to naproxen. History of depression, anxiety, hypothyroidism. Unknown tetanus status. Has no other medical complaints. No other modifying factors or associated signs and symptoms. PFSH Past Medical History Hx Anticoagulant Therapy: No Anemia: Yes Autoimmune Disease: No Blood Disorders: No Anxiety: Yes Depression: Yes Cancer: No Cardiovascular Problems: No High Cholesterol: Yes Diabetes: No Diminished Hearing: No Endocrine: No Gastrointestinal Disorders: No Genitourinary: No Headaches: No Hepatitis: No Hiatal Hernia: No Hypertension: No Immune Disorder: No Implanted Vascular Access Dvce: No Kidney Stones: Yes Musculoskeletal: No Neurologic: No Psychiatric: Yes (depression, anxiety, alcohol abuse) Reproductive: No Respiratory: No Seizures: No Thyroid Disease: No : 5 Para: 1 Miscarriage: 2 : 2 Ovarian Cysts: Yes (LEFT) Past Surgical History Abdominal Surgery: Yes (APPENDECTOMY, CHOLECYSTECTOMY) Appendectomy: Yes (2010) Cholecystectomy: Yes Hysterectomy: Yes Other Surgery: Yes Social History Alcohol Use: No (QUIT 2004) Tobacco Use: No (QUIT 2009) Substance Use: Yes (CRACK, POT ,AMPHET, BENZOS per records) Allergies-Medications (Allergen,Severity, Reaction): Coded Allergies: naproxen (Unverified Allergy, Severe, Hives, 05/18/17) Reported Meds & Prescriptions Reported Meds & Active Scripts Active Ibuprofen 800 Mg Tab 800 Mg PO Q6HR PRN [place] (Hydrocodone-Acetaminophen) 5 Mg-325 Mg Tab 1 Tab PO Q4H PRN Zofran (Ondansetron HCl) 4 Mg Tab 4 Mg PO Q6HR PRN Ibuprofen 800 Mg Tab 800 Mg PO Q8H PRN Reported Depakote ER (Divalproex Sodium) 500 Mg Joel 500 Mg PO DAILY Depakote ER (Divalproex Sodium) 500 Mg Joel 1,000 Mg PO DAILY Klonopin (Clonazepam) 0.5 Mg Tab 0.25 Mg PO DAILY Wellbutrin SR 12 HR (Bupropion HCl) 150 Mg Tab 100 Mg PO DAILY Review of Systems Except as stated in HPI: all other systems reviewed are Neg Physical Exam Narrative GENERAL: Well-nourished, well-developed female patient, in no acute distress SKIN: Warm and dry. Left knee with mild abrasion. HEAD: Atraumatic. Normocephalic. EYES: Pupils equal and round. No scleral icterus. No injection or drainage. ENT: Mucosa pink and moist. Airway patent. NECK: Trachea midline. CARDIOVASCULAR: Regular rate. RESPIRATORY: No accessory muscle use. GASTROINTESTINAL: Rounded MUSCULOSKELETAL: Right ankle with point tenderness to the lateral malleolus zone with palpation; minimal edema without erythema, ecchymosis; no obvious deformity. Right lateral foot at the fifth metatarsal region with edema, tenderness on palpation, mild ecchymosis; without erythema; no obvious deformity. Right lower extremity is supple nontender with 2+ pedal pulse and sensory intact and without erythema. Left knee with full range of motion; tenderness on palpation to the patellar aspect; no obvious deformity; joint stable with negative drawer test; greater than 90 flexion. No obvious deformities. No clubbing. No cyanosis. No edema. NEUROLOGICAL: Awake and alert. Oriented 3. No obvious cranial nerve deficits. Motor grossly within normal limits. Normal speech. PSYCHIATRIC: Appropriate mood and affect; insight and judgment normal. Data Data Last Documented VS Vital Signs Date Time Temp Pulse Resp B/P (MAP) Pulse Ox O2 Delivery O2 Flow Rate FiO2 01/20/18 08:34 98.2 89 20 123/78 (93) 100 Orders Orders Ankle, Complete (Foh1otw) (01/20/18 08:57) Foot, Complete (Ore5ahh) (01/20/18 08:57) Ice/Cold Pack (01/20/18 08:57) Crutches (01/20/18 08:57) Acetamin-Hydrocod 325-5 Mg ([place] 5-325 (01/20/18 09:00) Ondansetron Odt (Zofran Odt) (01/20/18 10:00) Splint Or Brace Apply/Monitor (01/20/18 10:16) Ed Discharge Order (01/20/18 10:26) Fiberglass Short Leg Splint Ad (01/20/18 ) [facility] Medical Decision Making Medical Screen Exam Complete: Yes Emergency Medical Condition: Yes Medical Record Reviewed: Yes Differential Diagnosis Fracture, sprain, contusion, abrasion Narrative Course 42-year-old female with right foot and right ankle injury, and left knee abrasion after tripping fall today. Denies hitting her head or loss of consciousness. Denies neck pain or back pain. Right ankle x-ray, right foot x- ray, [place] ordered. I offered to x-ray the left knee and she declined. 1015: Right ankle and foot x-ray concludes: Foot X-Ray 01/20/18856 Signed Impressions: Service Date/Time: January 09:24 - CONCLUSION: 1. Minimally comminuted nondisplaced fracture of the base of the fifth metatarsal. Colby Carter MD Ankle X-Ray 01/20/18856 Signed Impressions: Service Date/Time: January 09:22 - CONCLUSION: 1. No acute fracture or dislocation. Colby Carter MD Patient provided copy of the x-ray report. Posterior short leg splint ordered. Crutches provided for support. Instructed patient to follow-up with podiatry. Instructed patient to follow up with primary care provider. Patient verbalizes understanding and agreement with treatment plan. Patient is medically cleared and stable for discharge. Discussed reasons to return to the emergency department. Patient agrees with treatment plan. The patients vital signs are stable and the patient is stable for outpatient follow-up and treatment. Patient discharged home, stable and in no acute distress. Diagnosis Primary Impression: Fracture of fifth metatarsal bone of right foot Qualified Codes: S92.354A - Nondisplaced fracture of fifth metatarsal bone, right foot, initial encounter for closed fracture Referrals: [employer] Primary Care Physician Patient Instructions: Crutch Instructions (ED), Foot Fracture in Adults (ED), General Instructions Additional Instructions: Do not drink alcohol or operate machinery while taking [place] Tylenol or ibuprofen as directed and as needed for pain and inflammation Rest, ice, compress, and elevate extremity to decrease pain and inflammation Splint for support; do not remove splint until cleared Crutches for support Avoid aggravating activity; increase activity as tolerated Follow-up with primary care provider Follow-up with night shift supervisor Return to the emergency department immediately with worsening of symptoms Med/Other Pt SpecificInfo: Prescription(s) given Scripts Ibuprofen (Ibuprofen) 800 Mg Tab 800 MG PO Q6HR Y for PAIN, #30 TAB 0 Refills Prov: Bri Pisano 01/20/18 Hydrocodone-Acetaminophen ([place]) 5 Mg-325 Mg Tab 1 TAB PO Q4H Y for PAIN, #20 TAB 0 Refills Prov: Bri Pisano 01/20/18 Disposition: 01 DISCHARGE HOME Condition: Stable Bri Pisano Jan 20, 2018 10:13
[2018-01-20] MEDS ORDERED: NORC5TAB PO (10:26)
[2018-01-20] MEDS ORDERED: IBUP1TAB7 PO (10:26)
== END 2018-01-20 11:02 | disposition home or self-care (01) ==
LOC: NEPD 08:32
DX: S92.354A Nondisplaced fracture of fifth metatarsal bone, right foot, initial encounter for closed fracture (principal); S80.212A Abrasion, left knee, initial encounter; E03.9 Hypothyroidism, unspecified; E78.00 Pure hypercholesterolemia, unspecified; F41.8 Other specified anxiety disorders; Z87.442 Personal history of urinary calculi; W01.0XXA Fall on same level from slipping, tripping and stumbling without subsequent striking against object, initial encounter
CPT/HCPCS: 29515; 73610; 73630; 99283; E0113